=== PATIENT | male | born 1930 | race Caucasian/White ===

== ENCOUNTER 2017-02-12 13:52 | Outpatient (CLI) | payer MEDICARE, OTHER ==
[2017-02-12] MEDS ORDERED: UNOBMED (15:58)
--- NOTE | 2017-02-12 16:00 | GI Initial Consult Note ---
History of Present Illness General Date patient seen: February 12, 2017 Time patient seen: 14:00 Referring physician: JUAN LUIS Reason for Consultation: ROUTINE COLONOSCOPY Present Illness HPI 86 year old male referred by Dr. Torrez for routine colonoscopy screening. Last colonoscopy approximately 5 years with unremarkable results per patient. No general GI complaints at this time. Home Meds Reported Medications Unable to Obtain Medications (UNABLE TO OBTAIN MEDS) 1 Ea Ea 02/12/17 Allergies: Coded Allergies: No Known Allergies (Verified Allergy, Mild, 11/30/06) Patient History History Provided By: Patient PMH Narrative Patient unable to recall cholesterol med. PMHx Elevated cholesterol PSHx Abdominal hernia surgery x 3 months Social History: Denies: alcohol use, drug use, other, smoking Review of Systems All Other Systems: negative except mentioned in HPI Physical Exam T 97.2 BP 129/77 P 72 96 RA HT 5'7 WT 146.1, denies weight loss. General Appearance: well appearing, no apparent distress, alert Head: normocephalic EENT: normal ENT inspection Neck: full range of motion, supple Respiratory: normal inspection, chest non-tender, lungs clear, normal breath sounds Cardiovascular: normal rate Gastrointestinal: normal inspection, non tender, soft, normal bowel sounds Rectal: deferred Genitourinary: normal inspection, no CVA tenderness Musculoskeletal: normal inspection, back normal Neurologic: normal inspection, alert, oriented x3, responsive Psychiatric: normal inspection, judgement/insight normal, memory normal Skin: normal inspection, normal color, no rash Lymphatic: normal inspection, no adenopathy GI: Plan Problems: (1) Elevated cholesterol (2) Colonoscopy planned Plan EGD/colonoscopy scheduled for 03/02/17. - CLD & Prep instructions given to patient. Seen with Dr. Juan. Thank you for referring this patient. Oriana Gamboa N.P. February 12, 2017 16:00
== END 2017-02-12 14:21 | disposition home or self-care (01) ==
LOC: PAN 13:52
DX: E78.00 Pure hypercholesterolemia, unspecified (principal)
CPT/HCPCS: 99201

== ENCOUNTER 2017-03-02 07:41 | Day surgery (SDC) | payer MEDICARE, OTHER ==
[2017-03-02] VITALS (9 sets, daily range): BP systolic 106–135; BP diastolic 70–85
[~2017-03-02] VITALS: Ht 162.6 cm; Wt 63.5 kg
[~2017-03-02 07:41] MED LIST: UNOBMED
[2017-03-02] MEDS ORDERED: CHOLESTEROL MED (08:34)
--- NOTE | 2017-03-02 09:50 | Pre-Procedure Note/Attestation ---
Pre-Procedure Note/Attestation Complete Prior to Procedure Planned Procedure: not applicable Procedure Narrative: egd/colonoscopy Indications for Procedure Pre-Operative Diagnosis: anemia Attestation I attest that I discussed the nature of the procedure; its benefits; risks and complications; and alternatives (and the risks and benefits of such alternatives ), prior to the procedure, with the patient (or the patient's legal livestock sales representative). I attest that, if there was a reasonable possibility of needing a blood transfusion, the patient (or the patient's legal livestock sales representative) was given the [facility] standardized written summary, pursuant to the Tray Gaby Blood Safety Act ([place] Health and Safety Code # 1645, as amended). I attest that I re-evaluated the patient just prior to the surgery and that there has been no change in the patient's H&P, except as documented below: BONITA SMYTH Mar 02, 2017 09:50
--- NOTE | 2017-03-02 09:52 | Short Stay Surgery H&P ---
History of Present Illness History of Present Illness Chief Complaint abd pain see recent consult note HPI Anita Marsh is a 86 year old male who was admitted on for Gerd/Colon Screening Patient History Allergies: Coded Allergies: No Known Allergies (Verified Allergy, Mild, 11/30/06) PAST MEDICAL HISTORY: Past Surgeries: Social History: Medication History Miscellaneous Medications [Cholesterol Med], (Reported) Review of Systems Cardiovascular: Reports: no symptoms Respiratory: Reports: no symptoms Skeletal: Reports: no symptoms Gastrointestinal: Reports: no symptoms Genitourinary: Reports: no symptoms Neurologic: Reports: no symptoms Endocrine: Reports: no symptoms Hematologic: Reports: no symptoms Physical Exam Vital Signs Last Vital Signs Date Time Temp Pulse Resp B/P Pulse Ox O2 Delivery O2 Flow Rate FiO2 03/02/17 08:24 97.9 73 18 130/75 95 Room Air Skin: normal HENT: normal Heart: normal Lungs: normal Abdomen: normal Extremities: normal Plan Plan of Care colonoscopy Final Diagnosis: Attestation Are the patient's medical conditions optimized for surgery? Attestation Response: yes BONITA SMYTH Mar 02, 2017 09:52
--- NOTE | 2017-03-02 10:19 | Anethesia Preoperative Eval ---
Anesthesia Pre-op PMH/ROS General Date of Evaluation: Mar 02, 2017 Time of Evaluation: 10:14 Anesthesiologist: anne ASA Score: ASA 2 Mallampati Score Class I : Soft palate, uvula, fauces, pillars visible Class II: Soft palate, uvula, fauces visible Class III: Soft palate, base of uvula visible Class IV: Only hard plate visible Mallampati Classification: Class II Surgeon: walter Surgical Procedure: colon sreening Family History: no anesthesia problems Allergies: Coded Allergies: No Known Allergies (Verified Allergy, Mild, 11/30/06) Medications: see eMAR Past Medical History Cardiovascular: Denies: CAD, HTN, SC, arrhythmia, other, valve dz Pulmonary: Denies: COPD, JAIME, asthma, other Gastrointestinal/Genitourinary: Denies: CRI, ESRD, GERD, other Neurologic/Psychiatric: Denies: CVA, TIA, dementia, depression/anxiety, other Endocrine: Denies: DM, hypothyroidism, other, steroids HEENT: Denies: SHINNECOCK (L), SHINNECOCK (R), cataract (L), cataract (R), glaucoma, other Hematology/Immune: Denies: DVT, anemia, bleeding disorder, other Musculoskeletal/Integumentary: Denies: DDD, DJD, OA, RA, edema, other PSxH Narrative: none Anesthesia Pre-op Phys. Exam Physician Exam Last Vital Signs Date Time Temp Pulse Resp B/P Pulse Ox O2 Delivery O2 Flow Rate FiO2 03/02/17 08:24 97.9 73 18 130/75 95 Room Air Constitutional: NAD Neurologic: CN 2-12 intact Cardiovascular: RRR Respiratory: CTA Gastrointestinal: S/NT/ND Airway Exam Mallampati Classification 2 Mallampati Score: Class II MO: full ROM: full Dentures: no lower, no upper Anesthesia Pre-op A/P Studies Pre-op Studies: EKG - sr Risk Assessment & Plan Plan: mac Status Change Before Surgery: No Pre-Antibiotics Drug: none TRACY ZHANG CRNA Mar 02, 2017 10:19
--- NOTE | 2017-03-02 10:26 | Endoscopy Procedure Note ---
Endoscopy Procedure Note Indication for Procedure: abd pain Procedures Performed: colonoscopy Operative Findings/Diagnosis: 8 polyps Specimen: yes Pt Tolerated Procedure Well: Yes Estimated Blood Loss: none Anesthesiologist: piotr Anesthesia: MAC Implant(s) used?: No 50 yrs or older w/o bx or poly: Not Applicable 10yrs. F/U not recommended: Not Applicable BONITA SMYTH Mar 02, 2017 10:26
--- NOTE | 2017-03-02 11:07 | 48 Hour Post Anesthesia Eval ---
Post Anesthesia Evaluation Procedure: colonoscopy Date of Evaluation: Mar 02, 2017 Time of Evaluation: 11:06 Blood Pressure Systolic: 130 0: 70 Pulse Rate: 67 O2 Sat by Pulse Oximetry: 98 Airway: patent Nausea: No Vomiting: No Hydration Status: adequate Cardiopulmonary Status: stable Mental Status/LOC: patient returned to baseline Post-Anesthesia Complications: none Follow-up care needed: N/A TRACY ZHANG CRNA Mar 02, 2017 11:07
--- NOTE | 2017-03-02 11:08 | Immediate Post-Op Evaluation ---
Immediate Post-Op Evalulation Immediate Post-Op Evalulation Procedure: colonoscopy Date of Evaluation: Mar 02, 2017 Time of Evaluation: 10:30 IV Fluids: 500 Blood Pressure Systolic: 112 Blood Pressure Diastolic: 80 Pulse Rate: 67 Respiratory Rate: 14 O2 Sat by Pulse Oximetry: 100 Temperature (Fahrenheit): 97.2 Patient Status: awake, reacts, patent Hydration Status: adequate Drug: in TRACY ZHANG PITTING MACHINE OPERATOR Mar 02, 2017 11:08
--- NOTE | 2017-03-02 22:00 | Procedure Note ---
DATE OF PROCEDURE: 03/02/2017 SURGEON: Dusty Juan M.D. PROCEDURE: Colonoscopy with snare polypectomy. ANESTHESIOLOGIST: Geeta Jiménez CRNA. INSTRUMENT: Olympus adult flexible colonoscope. INDICATION: Abdominal pain and screening colonoscopy evaluation. REASON FOR PROCEDURE: The procedure, risks, benefits, and possible consequences, including hemorrhage, aspiration, perforation and infection, and alternative treatments, were explained to the patient/legal guardian by Dr. Dusty Juan and the patient/legal guardian understood and accepted these risks. DESCRIPTION OF PROCEDURE: After informed consent was obtained and the patient was adequately sedated, first rectal exam was performed, which was positive for internal hemorrhoids. Then, the scope was advanced from the rectum into the cecum documented by appendiceal orifice, ileocecal valve, and upper quadrant palpation. Quality of prep was very good. The patient had total of 8 polyps in this colonoscopy examination. Four polyps in the transverse and three in the descending colon, and one in the rectosigmoid area. This polyps, some of them were removed with cold, some of them with hot snare polypectomy, and some of them with cold biopsy forceps technique. The largest polyp roughly measured maybe about 6 mm in the transverse colon removed with hot polypectomy. The patient had an evidence of scattered diverticulosis in the left colon. Retroflexion of rectum showed evidence of internal hemorrhoids. SUMMARY FINDINGS: 1. Diverticulosis. 2. Eight colonic polyps removed, see above for details. 3. Internal hemorrhoids. RECOMMENDATIONS: 1. Followup biopsies and treat accordingly. 2. Given 8 polyps, the patient would need a repeat colonoscopy in three years. I want to thank, for this kind referral. Dusty Juan M.D. DR: CRAIG JOB#: [id number] CC:
--- NOTE | 2017-03-04 17:54 | Cardiology Report ---
APPROVED REPORT EKG Measurement Heart [id number] Normal sinus rhythm Normal ECG
== END 2017-03-02 11:35 | disposition home or self-care (01) ==
LOC: GAS 07:41
DX: Z12.11 Encounter for screening for malignant neoplasm of colon (principal); R10.9 Unspecified abdominal pain; D12.3 Benign neoplasm of transverse colon; D12.4 Benign neoplasm of descending colon; D12.7 Benign neoplasm of rectosigmoid junction; K64.8 Other hemorrhoids; K57.30 Diverticulosis of large intestine without perforation or abscess without bleeding; K21.9 Gastro-esophageal reflux disease without esophagitis
CPT/HCPCS: 93005; 94003; 94150

== ENCOUNTER 2017-03-18 13:12 | Outpatient (CLI) | payer MEDICARE, OTHER ==
[~2017-03-18 13:12] MED LIST changes: +CHOLESTEROL MED
--- NOTE | 2017-03-18 14:23 | GI Progress Note ---
Assessment/Plan Problems: (1) Diverticulosis ICD Codes: K57.90 - Diverticulosis of intestine, part unspecified, without perforation or abscess without bleeding SNOMED: 108822177 (2) Colonic polyp ICD Codes: K63.5 - Polyp of colon SNOMED: 28450893 (3) Hemorrhoids ICD Codes: K64.9 - Unspecified hemorrhoids SNOMED: 14239771 (4) Colonoscopy planned SNOMED: 360744382 Status: stable Status Narrative Seen with Dr. Juan. Assessment/Plan Endoscopy Procedure Note Indication for Procedure: abd pain Procedures Performed: colonoscopy Operative Findings/Diagnosis: 8 polyps BONITA JUAN - Mar 02, 2017 10:26 colonoscopy reviewed with patient biopsies negative for HP RTC prn repeat colonoscopy x 3 years Subjective Gastrointestinal/Abdominal: Reports: no symptoms Objective T 98.3 BP 132/72 P 80 95 RA General Appearance: no apparent distress, alert Cardiovascular: normal rate Respiratory/Chest: normal breath sounds, no respiratory distress Abdominal Exam: normal bowel sounds, non tender, soft Extremities: normal range of motion Oriana Gamboa N.P. Mar 18, 2017 14:23
== END 2017-03-18 13:50 | disposition home or self-care (01) ==
LOC: PAN 13:12
DX: K57.90 Diverticulosis of intestine, part unspecified, without perforation or abscess without bleeding (principal); K63.5 Polyp of colon; K64.9 Unspecified hemorrhoids
CPT/HCPCS: 99211